=== PATIENT | female | born 1955 | race Caucasian/White ===

== ENCOUNTER → 2021-08-25 12:07 | Outpatient (BNVA) | payer OTHER, SELFPAY | PROVIDERS: Visit Provider Family Medicine | DX: A41.51 Sepsis due to Escherichia coli [E. coli] (principal); D63.1 Anemia in chronic kidney disease; E03.9 Hypothyroidism, unspecified; E11.65 Type 2 diabetes mellitus with hyperglycemia; E87.0 Hyperosmolality and hypernatremia; N18.9 Chronic kidney disease, unspecified | CPT/HCPCS: 83036; 85025 ==

== ENCOUNTER → 2021-08-28 09:15 | Outpatient (BNVA) | payer OTHER, SELFPAY | PROVIDERS: Visit Provider Family Medicine | DX: E03.9 Hypothyroidism, unspecified (principal) | CPT/HCPCS: 84439; 84443 ==